=== PATIENT | female | born 1955 | race Caucasian/White ===

== ENCOUNTER 2018-12-31 20:31 | Emergency (ER) | payer OTHER | END 2018-12-31 21:10 | disposition home or self-care (01) | LOC: ERS 20:31 | DX: A37.90 Whooping cough, unspecified species without pneumonia (principal) | CPT/HCPCS: 99283 ==

== ENCOUNTER 2019-07-16 14:44 | Outpatient (CLI) | payer OTHER ==
--- NOTE | 2019-07-16 15:46 | ULT ---
ULTRASOUND ABDOMEN: 07/16/19 HISTORY: Abdominal pain. FINDINGS: Multiple mobile shadowing gallstones are seen without gallbladder wall thickening or pericholecystic fluid. The largest gallstone measures 2.5 cm. The liver, spleen, right kidney, pancreas and visualized portions of the aorta and IVC appear normal. There is a 3.4 x 3.6 x 3.4 mm calculus in the left kidney. No hydronephrosis seen on either side. Th e common duct measures 4 mm in diameter. No free fluid is seen. IMPRESSION: 1. Cholelithiasis. 2. 4 mm nonobstructing left renal calculus. POS: [facility]
== END 2019-07-16 14:45 | disposition home or self-care (01) ==
LOC: BICULT 14:44
PROVIDERS: ATTEND Family Medicine
DX: R10.9 Unspecified abdominal pain (principal); K80.20 Calculus of gallbladder without cholecystitis without obstruction; N20.0 Calculus of kidney
CPT/HCPCS: 93975

== ENCOUNTER 2019-08-13 15:10 | Outpatient (CLI) | payer OTHER ==
--- NOTE | 2019-08-13 16:20 | MMO ---
Bilateral MAMMO Bilat Screen [facility]. CLINICAL HISTORY: Patient is 64 years old and is seen for screening. The patient has no family history of breast cancer. The patient has no personal history of cancer. VIEWS: The views performed were: bilateral craniocaudal with tomosynthesis and bilateral mediolateral oblique with tomosynthesis. FILMS COMPARED: The present examination has been compared to prior imaging studies performed at [facility] on 05/08/2009, 07/11/2009, 05/17/2010 and 02/16/2016. This study has been interpreted with the assistance of computer-aided detection. MAMMOGRAM FINDINGS: The breasts are heterogeneously dense, which could obscure a lesion on mammography. There are no suspicious masses, suspicious calcifications, or new areas of architectural distortion. IMPRESSION: THERE IS NO MAMMOGRAPHIC EVIDENCE OF MALIGNANCY. A ROUTINE FOLLOW-UP MAMMOGRAM IN 1 YEAR IS RECOMMENDED. THE RESULTS OF THIS EXAM WERE SENT TO THE PATIENT. ACR BI-RADS Category 1 - Negative MAMMOGRAPHY NOTE: 1. A negative mammogram report should not delay a biopsy if a dominant of clinically suspicious mass is present. 2. Approximately 10% to 15% of breast cancers are not detected by mammography. 3. Adenosis and dense breasts may obscure an underlying neoplasm. Reported by: LUAN ABREU MD Electonically Signed: [id number]
== END 2019-08-13 15:11 | disposition home or self-care (01) ==
LOC: BICMAMMO 15:10
PROVIDERS: ATTEND Family Medicine
DX: Z12.31 Encounter for screening mammogram for malignant neoplasm of breast (principal)
CPT/HCPCS: 77063; 77067

== ENCOUNTER 2019-09-12 01:26 | Emergency (ER) | payer OTHER ==
[2019-09-12] MEDS ORDERED: Ondansetron ODT 4 MG TAB ONE (01:54)
[2019-09-12] MEDS ORDERED: Ketorolac Tromethamine 30 MG/ML VIAL ONE (01:54)
[2019-09-12] MEDS ORDERED: Dicyclomine 20 MG TAB ONE (01:54)
[2019-09-12 01:58] LABS: #Basophils 0.1 thou/uL (0.0-0.2); #Eosinphils 0.2 thou/uL (0.0-0.7); #Lymphocytes 2.7 thou/uL (1.20-3.40); #Monocytes 0.7 thou/uL (0.11-0.59); #Neutrophils 4.9 thou/uL (1.40-6.50); %Basophils 0.9 % (0.0-1.0); %Eosinophils 2.2 % (0.0-10.0); %Lymphocytes 31.8 % (21.0-51.0); %Monocytes 7.7 % (0.0-10.0); %Neutrophils 57.3 % (42.0-75.0); Hemoglobin 14.8 g/dL (12.0-16.0); Mean Corpuscular HGB CONC 34.3 g/dL (32.0-36.0); Mean Corpuscular Volume 93.4 fL (78.0-98.0); Mean Platelet Volume 7.9 fL (7.4-10.4); Platelet Count 226 thou/uL (130-400); RBC Distribution Width 11.3 % (11.5-14.5); Red Blood Cell (RBC) Count 4.64 mill/uL (4.20-5.40); White Blood Cell (WBC) Count 8.5 thou/uL (4.8-10.8)
[2019-09-12 02:16] LABS: ALT (SGPT) 17 U/L (8-55); AST (SGOT) 35 U/L (5-34); Albumin 4.3 g/dL (3.4-4.8); Alkaline Phosphatase 92 U/L (40-110); Anion Gap 12 mmol/L (10-20); BUN (Urea Nitrogen) 14 mg/dL (9.8-20.1); Bilirubin, Total 0.4 mg/dL (0.2-1.2); Calc. Creatinine Clearance 0 mL/min (70-130); Calcium 9.5 mg/dL (7.8-10.44); Carbon Dioxide 31 mmol/L (23-31); Chloride 103 mmol/L (98-107); Estimated GFR-MDRD 68; Globulin 2.5 g/dL (2.4-3.5); Glucose 106 mg/dL (80-115); Lipase 28 U/L (8-78); Potassium 3.5 mmol/L (3.5-5.1); Protein, Total 6.8 g/dL (6.0-8.3); Sodium 142 mmol/L (136-145)
--- NOTE | 2019-09-12 08:14 | ULT ---
PRELIMINARY REPORT/[facility]/AFTER HOURS PROCEDURE LIMITED RIGHT UPPER QUADRANT ABDOMEN ULTRASOUND: CLINICAL HISTORY: Right upper quadrant pain. History of gallstones. See notes on last image. Thanks. TECHNIQUE: Real-time ultrasound of the right upper quadrant with image documentation. COMPARISON: None provided. FINDINGS: LIVER: Unremarkable. GALLBLADDER: Cholelithiasis is noted with a negative sonographic Hernandez's sign. No wall thickening. N o pericholecystic fluid. COMMON BILE DUCT: No dilation. Measures 5.7 mm. PANCREAS: Unremarkable as visualized. The distal pancreas is obscured by overlying bowel gas. RIGHT KIDNEY: Unremarkable. No hydronephrosis. Measures 10.8 cm. IMPRESSION: Cholelithiasis with no sonographic evidence for acute cholecystitis. ELECTRONICALLY SIGNED BY: Shin Bermeo MD Sep 12, 2019 2:48:49 AM [employer] This report is intended for review by the ordering physician only, in accordance of law. If you recei ve this report in error, please call [facility] at [phone]. FINAL REPORT RIGHT UPPER QUADRANT ULTRASOUND: PROVIDED CLINICAL HISTORY: Abdominal pain. COMPARISON: 07/16/2019 FINDINGS/IMPRESSION: I agree with the preliminary interpretation given by [facility]. CODE QA Transcribed Date/Time: 09/12/2019 8:40 AM
== END 2019-09-12 03:00 | disposition home or self-care (01) ==
LOC: ERS 01:26
DX: K80.70 Calculus of gallbladder and bile duct without cholecystitis without obstruction (principal)
CPT/HCPCS: 36415; 76705; 80053; 83690; 85025; 93005; 96372; J1885; Q0162

== ENCOUNTER 2021-06-26 16:22 | Outpatient (CLI) | payer OTHER ==
[2021-06-26 17:12] LABS: #Basophils 0.1 10x3/uL (0.0-0.2); #Eosinphils 0.1 10x3/uL (0.0-0.5); #Monocytes 0.4 10x3/uL (0.0-1.1); #Neutrophils 4.5 10x3/uL (1.5-8.4); %Basophils 1.3 % (0.0-2.0); %Eosinophils 1.3 % (0.0-6.0); %Lymphocytes 28.7 % (18.0-47.0); %Monocytes 6.1 % (0.0-10.0); %Neutrophils 62.2 % (40.0-75.0); Mean Corpuscular HGB CONC 34.1 g/dL (32.0-36.0); Mean Corpuscular Hemoglobin 31.8 pg (27.0-33.0); Mean Corpuscular Volume 93.2 fl (81.6-98.3); Platelet Count 205 10x3/uL (150-450); White Blood Cell (WBC) Count 7.2 10x3/uL (3.5-10.5)
[2021-06-26 17:18] LABS: Anion Gap 10 mmol/L (10-20); BUN (Urea Nitrogen) 11 mg/dL (9.8-20.1); Calc. Creatinine Clearance 0 mL/min (70-130); Calcium 9.2 mg/dL (7.8-10.44); Carbon Dioxide 30 mmol/L (23-31); Chloride 105 mmol/L (98-107); Glucose 86 mg/dL (80-115); Sodium 141 mmol/L (136-145)
[2021-06-27 01:01] LABS: SARS-CoV-2 PCR by NAA Not Detected (NotDetected)
== END 2021-06-26 16:23 | disposition home or self-care (01) ==
LOC: LABBT 16:22
PROVIDERS: ATTEND Surgery
DX: Z01.812 Encounter for preprocedural laboratory examination (principal); K80.20 Calculus of gallbladder without cholecystitis without obstruction; Z20.822 Contact with and (suspected) exposure to COVID-19
CPT/HCPCS: 80048; 85025; U0003; U0005

== ENCOUNTER 2021-06-29 11:12 | Day surgery (SDC) | payer OTHER ==
[2021-06-28 13:50] VITALS: BMI 24.5
[2021-06-29] MEDS ORDERED: ceFAZolin Sodium (SDC) 2 GM/100 ML BAG ONE (12:07)
[2021-06-29 12:09] LABS: ALT (SGPT) 14 U/L (8-55); AST (SGOT) 17 U/L (5-34); Albumin 4.3 g/dL (3.4-4.8); Alkaline Phosphatase 93 U/L (40-110); Bilirubin, Direct 0.3 mg/dL (0.1-0.3); Bilirubin, Total 0.8 mg/dL (0.2-1.2)
[2021-06-29] MEDS ORDERED: Lidocaine 1% w/Epinephrine 1:100K 20 ML VIAL ONE (14:22)
[2021-06-29] MEDS ORDERED: Bupivacaine 0.25% HCL 30 ML VIAL ONE (14:22)
[2021-06-29] MEDS ORDERED: Fentanyl 100 MCG/2 ML VIAL ONE (14:36)
[2021-06-29] MEDS ORDERED: PROPOFOL 200 MG/20 ML VIAL ONE (14:55)
[2021-06-29] MEDS ORDERED: Ondansetron PF 4 MG/2 ML Vial ONE (14:55)
[2021-06-29] MEDS ORDERED: Ketorolac Tromethamine 30 MG/ML VIAL ONE (14:55)
[2021-06-29] MEDS ORDERED: Dexamethasone 20 MG/5 ML VIAL ONE (14:55)
[2021-06-29] MEDS ORDERED: Rocuronium Bromide 10 MG/ML (10ML VIAL) ONE (14:55)
[2021-06-29] MEDS ORDERED: Lidocaine 1% PF 5 ML VIAL ONE (14:55)
[2021-06-29] MEDS ORDERED: HYDROcodone/Acetaminophen 5/325 mg Tablet ONE (16:45)
== END 2021-06-29 17:08 | disposition home or self-care (01) ==
LOC: SDC 11:12
PROVIDERS: ATTEND Surgery
PROC: 0FT44ZZ Resection of Gallbladder, Percutaneous Endoscopic Approach (ICD-10-PCS; principal; 2021-06-29)
DX: K80.10 Calculus of gallbladder with chronic cholecystitis without obstruction (principal); Z88.1 Allergy status to other antibiotic agents
CPT/HCPCS: 36415; 80076; 88304; J0690; J1100; J1885; J2405; J2704; J3010; S0020